=== PATIENT | male | born 1985 | race Caucasian/White ===

== ENCOUNTER 2021-07-06 15:52 | Emergency (ER) | payer OTHER ==
[2021-07-06] MEDS ORDERED: LIDOCAINE 1%-EPI 1:100,000 20 ML VIAL SQ STA (17:31)
--- NOTE | 2021-07-06 17:38 | ED ---
General Adult HPI - General Chief complaint: Dental/Oral Stated complaint: tooth abcess Time Seen by Provider: 07/06/21 17:18 Source: patient Mode of arrival: ambulatory Limitations: no limitations - History of Present Illness Initial comments: Dictation was produced using [employer] dictation software. please excuse any grammatical, word or spelling errors. Chief Complaint: 35-year-old male presents to the emergency department for gingival abscess History of Present Illness: Patient 35-year-old male who states he doesn't see a dentist. He noticed that he had a gun abscess developing over the last couple days. Patient denies any fever. States that it's behind his left cuspids. No constitutional symptoms. The ROS documented in this emergency department record has been reviewed and confirmed by me. Those systems with pertinent positive or negative responses have been documented in the HPI. All other systems are other negative and/or noncontributory. PHYSICAL EXAM: General Impression: Alert and oriented x3, not in acute distress HEENT: Normocephalic atraumatic, extra-ocular movements intact, pupils equal and reactive to light bilaterally, mucous membranes moist. Oral:, 5 x 5 mm gingival abscess behind tooth #11. Chest: Able to complete full sentences, no retractions, no tachypnea Motor: no focal deficits noted Neurological: CN II-XII grossly intact, no focal motor or sensory deficits noted Skin: Intact with no visualized rashes Psych: Normal affect and mood ED course: 35-year-old male presents to the emergency department for gingival abscess. Vital signs upon arrival are within acceptable limits. Was made to drain the gingival abscess however patient was not able to tolerate the anesthetic injection. Patient after some attempts states that the pain is too much for him to tolerate. He was given Hurricaine spray to try to numb the area prior to anesthetic injection however he still felt pain. Patient wanted to stop. He wanted to be discharged with antibiotics and a follow-up with a dentist. - Related Data Previous Rx's Medication Instructions Recorded HYDROcodone/APAP 5-325MG [Blacklick 5] 1 each PO Q4HR PRN #10 tab 01/25/15 Naproxen [Naprosyn] 500 mg PO Q12HR PRN #20 tab 01/25/15 Amoxic-Pot Clav 875-125Mg 1 tab PO BID 10 Days #20 tab 07/06/21 [Augmentin 875-125] Allergies Allergy/AdvReac Type Severity Reaction Status Date / Time No Known Allergies Allergy Verified 07/06/21 16:16 Review of Systems ROS Statement: Those systems with pertinent positive or pertinent negative responses have been documented in the HPI. ROS Other: All systems not noted in ROS Statement are negative. Past Medical History Past Medical History: No Reported History History of Any Multi-Drug Resistant Organisms: None Reported Past Surgical History: No Surgical Hx Reported Past Psychological History: No Psychological Hx Reported Smoking Status: Current every day smoker Past Alcohol Use History: Occasional Past Drug Use History: None Reported General Exam Limitations: no limitations Course Vital Signs 07/06/21 16:14 Temperature 98.6 F Pulse Rate 87 Respiratory 16 Rate Blood Pressure 136/93 O2 Sat by Pulse 99 Oximetry Disposition Clinical Impression: Gum abscess Disposition: HOME SELF-CARE Condition: Fair Instructions (If sedation given, give patient instructions): Dental Abscess (ED) Additional Instructions: follow up with dentist for gum abscess drainage Prescriptions: Amoxic-Pot Clav 875-125Mg [Augmentin 875-125] 1 tab PO BID 10 Days #20 tab Is patient prescribed a controlled substance at d/c from ED?: No
[2021-07-06] MEDS ORDERED: oxyCODONE-APAP 5-325MG 1 EACH TAB PO STA (17:53)
[2021-07-06] MEDS ORDERED: BENZOCAINE SPRAY 1 CAN MUCOUS MEM STA (18:02)
[2021-07-06 18:46] VITALS: BP 130/78; PULSE 88; RESP 18; TEMP 98.9
== END 2021-07-06 18:42 | disposition home or self-care (01) ==
LOC: EC 15:52
DX: K05.219 Aggressive periodontitis, localized, unspecified severity (principal); F17.200 Nicotine dependence, unspecified, uncomplicated
CPT/HCPCS: 41800; 99282